=== PATIENT | male | born 1990 | race American Indian/Alaskan Native ===

== ENCOUNTER 2017-05-22 10:55 | Outpatient (CLI) | payer MEDICAID | END 2017-05-22 10:56 | disposition home or self-care (01) | LOC: LAB 10:55 | PROVIDERS: ATTEND Psychiatry & Neurology Psychiatry | DX: F31.12 Bipolar disorder, current episode manic without psychotic features, moderate (principal); F70 Mild intellectual disabilities | CPT/HCPCS: 36415; 80164; 80186 ==

== ENCOUNTER 2017-08-29 10:33 | Outpatient (CLI) | payer MEDICAID ==
[2017-08-29 11:15] LABS: Alanine Aminotransferase 18 units/L (7-56); Albumin 4.2 g/dL (3.9-5); BUN/Creatinine Ratio 9; Blood Urea Nitrogen 7 mg/dL (9-20); Calcium 8.9 mg/dL (8.4-10.2); HDL Cholesterol 57 mg/dL (40-59); Hemolysis Index 5; LDL Cholesterol,Direct 135 mg/dL (50-130)
[2017-08-29 11:22] LABS: Basophils # (Auto) 0.1 K/mm3 (0.0-0.1); Eosinophils # (Auto) 0.1 K/mm3 (0.0-0.4); Eosinophils % (Auto) 1.7 % (0.0-4.3); Hematocrit 44.6 % (35.5-45.6); Hemoglobin 14.9 gm/dl (11.8-15.2); Lymphocytes # (Auto) 2.3 K/mm3 (1.2-5.4); Lymphocytes % (Auto) 43.1 % (13.4-35.0); Mean Corpuscular HGB Conc 33 % (32-34); Mean Corpuscular Hemoglobin 28 pg (28-32); Mean Corpuscular Volume 84 fl (84-94); Monocytes # (Auto) 0.3 K/mm3 (0.0-0.8); Platelet Count 242 K/mm3 (140-440); Red Blood Count 5.34 M/mm3 (3.65-5.03); Red Cell Distribution Width 12.8 % (13.2-15.2)
[2017-08-29 11:35] LABS: Free T4 (Free Thyroxine) 0.99 ng/dL (0.76-1.46)
== END 2017-08-29 10:34 | disposition home or self-care (01) ==
LOC: LAB 10:33
DX: F30.2 Manic episode, severe with psychotic symptoms (principal); F70 Mild intellectual disabilities; R79.89 Other specified abnormal findings of blood chemistry
CPT/HCPCS: 36415; 80053; 80061; 80156; 80164; 83036; 84146; 84439; 84443; 85025